=== PATIENT | female | born 1955 | race Caucasian/White ===

== ENCOUNTER 2017-01-13 22:02 | Emergency (ER) | payer MEDICARE, OTHER ==
--- NOTE | ~2017-01-13 | CR72 ---
[facility] A Service of [facility] RADIOLOGY TEXT RESULTS PATIENT: MAMIE HIRSCH LOCATION: [facility] : 59 UNIT #: [id number] AGE: [address]: Phoebe Khoury MD SEX: F ORDER DR: [id number] [facility]. [place], [place] [address] [id number] MR#: [id number] Acc #: [id number] NAME: MAMIE HIRSCH. : 1955 SEX: F STUDY DATE/TIME: 01/13/2017 22:14 UNIT: [facility] ROOM: STUDY DESCRIPTION: CR Chest Single View Portable Attending Physician: Phoebe Khoury M.D. Ordering Physician: Phoebe Khoury M.D. Primary Care Physician: Sadi Tran M.D. MEDICAL IMAGING REPORT This report is preliminary unless electronic signature is present EXAM Portable chest, 01/13/2017 INDICATION Cough, shortness of air for the past week. PROCEDURE Frontal view chest. COMPARISON 06/19/2016 FINDINGS Heart size is normal. Lungs are clear. No pleural fluid. No pneumothorax. IMPRESSION No active process. Dictated by... Chung Pierce M.D. THIS IS AN ELECTRONICALLY VERIFIED REPORT Chung Pierce M.D. at 01/14/2017 9:56 PM EED/diego TD: 01/14/2017 05:44 JOB #: [id number] MEDICAL IMAGING REPORT [facility] A Service of [facility] RADIOLOGY TEXT RESULTS PATIENT: MAMIE HIRSCH LOCATION: [facility] : 59 UNIT #: [id number] AGE: [address]: Phoebe Khoury MD SEX: F ORDER DR: Page 1 of 1 COPY
--- NOTE | ~2017-01-13 | EKG ---
PATIENT: MAMIE HIRSCH UNIT #: [id number] Ventricular Rate: 56 BPM Atrial Rate: 56 BPM P-R Interval: 138 ms QRS Duration: 80 ms Q-T Interval: 458 ms QTC Calculation(Bezet): 441 ms P [place]: 75 degrees Calculated R [place]: 70 degrees Calculated T [place]: 71 degrees Diagnosis Line: Sinus bradycardia with sinus arrhythmia Diagnosis Line: Otherwise normal ECG Diagnosis Line: When compared with ECG of 04-MAR-2011 18:54, Diagnosis Line: No significant change was found Diagnosis Line: Confirmed by JOSE ENAMORADO MD ([id number]) on 01/15/2017 Diagnosis Line: 11:02:46 PM INTERPRETING MD: FEI SHANNON
[~2017-01-13 22:02] MED LIST: ACETAMINOPHEN PO; ALBUTEROL17 G1 IH; CIPRO PO; METRONIDAZOLE PO; MUCINEX1200 MG/BO PO; PREDNISONE PO; PRILOSEC20 MG PO; SYMBICORT INH; ZOLOFT PO; ZOVIRAX400 MG PO
[2017-01-13 22:40] LABS: POC - CKMB 1.7 ng/mL (0.0-7.9); POC - TROPONIN <0.05 ng/mL (<=0.05)
[2017-01-13 23:09] LABS: BASOPHIL% 0.3 % (0-2.5); EOSINOPHIL% 0.6 % (0.0-7.0); HEMATOCRIT 38.5 % (35.0-45.0); HEMOGLOBIN 12.5 gm/dL (12.0-16.0); LYMPHOCYTE# 2.9 X10e3 (1.0-3.5); LYMPHOCYTE% 49.9 % (17.0-45.0); MEAN CELL VOLUME 98.1 FL (83-96); MEAN CORPUSCULAR HEMOGLOBIN 31.9 PG (28-34); MEAN CORPUSCULAR HGB CONC 32.5 g/dL (30-36); MONOCYTE# 0.5 X10e3 (0-1.0); MONOCYTE% 9.3 % (3.0-12.0); NEUTROPHIL# 2.3 X10e3 (1.5-7.1); NEUTROPHIL% 39.9 % (40-75); PLATELET COUNT 226 X10e3 (140-420); RED BLOOD COUNT 3.93 X10e (3.90-5.30); RED CELL DISTRIBUTION WIDTH 13.3 % (11.0-15.5); WHITE BLOOD COUNT 5.8 X10e3 (4.0-10.5)
[2017-01-13 23:28] LABS: PARTIAL THROMBOPLASTIN TIME 28.9 SECONDS (23.5-31.3); PROTHROMBIN TIME (PATIENT) 10.2 SECONDS (9.6-11.5)
[2017-01-13 23:29] LABS: DIFF IND NO
[2017-01-13 23:32] LABS: ALBUMIN SERUM 3.8 g/dL (3.5-5.0); BILIRUBIN, DIRECT 0.1 mg/dL (0.0-0.2); BILIRUBIN,INDIRECT 0.3 mg/dL (0.0-0.9); BILIRUBIN,TOTAL 0.4 mg/dL (0.2-2.0); BUN/CREATININE RATIO 15.71; CALCIUM SERUM 8.6 mg/dL (8.4-10.2); CREATININE SERUM 0.7 mg/dL (0.6-1.4); GLOM FILT RATE Estimated 94.8 mL/min (>60); MAGNESIUM 2.1 mg/dL (1.6-3.0); POTASSIUM 3.8 mmol/L (3.5-5.1); PROTEIN TOTAL SERUM 7.1 g/dL (6.0-8.3)
== END 2017-01-14 01:50 | disposition home or self-care (01) ==
LOC: CED 22:02
PROVIDERS: Student in an Organized Health Care Education/Training Program
DX: R19.7 Diarrhea, unspecified (principal); J44.9 Chronic obstructive pulmonary disease, unspecified; F17.200 Nicotine dependence, unspecified, uncomplicated; Z79.899 Other long term (current) drug therapy
CPT/HCPCS: 36415; 71010; 80048; 80076; 82553; 83690; 83735; 83880; 84484; 85025; 85610; 85730; 93005; 94640; 96361; 96374; 99284; J2920

== ENCOUNTER 2017-05-16 19:46 | Emergency (ER) | payer MEDICARE, OTHER ==
[~2017-05-16] VITALS: Ht 167.6 cm; Wt 56.2 kg
== END 2017-05-16 20:54 | disposition home or self-care (01) ==
LOC: CFTX 19:46 → CED 19:46 → CFTX 20:43
DX: S80.812A Abrasion, left lower leg, initial encounter (principal); J44.9 Chronic obstructive pulmonary disease, unspecified; F41.9 Anxiety disorder, unspecified; F17.210 Nicotine dependence, cigarettes, uncomplicated; Z79.899 Other long term (current) drug therapy; Z23 Encounter for immunization; W22.8XXA Striking against or struck by other objects, initial encounter; Y92.009 Unspecified place in unspecified non-institutional (private) residence as the place of occurrence of the external cause
CPT/HCPCS: 90471; 90715; 99283